=== PATIENT | female | born 1985 | race Caucasian/White ===

== ENCOUNTER 2016-09-29 17:17 | Outpatient (CLI) | payer OTHER ==
[2016-09-29 17:51] VITALS: BMI 28.1
== END 2016-09-29 19:19 | disposition home or self-care (01) ==
LOC: FBC 17:17 → FBCOUT 17:17
PROVIDERS: ATTEND Registered Nurse
DX: O36.8190 Decreased fetal movements, unspecified trimester, not applicable or unspecified (principal); Z3A.00 Weeks of gestation of pregnancy not specified
CPT/HCPCS: 59050; G0463